=== PATIENT | female | born 1945 | race Caucasian/White ===

== ENCOUNTER 2023-12-27 09:05 | Emergency (ER) | payer MEDICARE ==
[2023-12-27 09:36] VITALS: BP 130/68; O2SAT 99
--- NOTE | 2023-12-27 09:46 | ED Physician Documentation ---
PD HPI BACK PAIN - Stated complaint Stated Complaint: GLF - Chief complaint Chief Complaint: Trauma Ch/Bk - History obtained from History obtained from: Patient - History of Present Illness Timing - onset: Yesterday Timing - duration: Days (1) Timing - details: Abrupt onset Pain level max: 5 Pain level now: 3 Location: Left, Other (ribs) Quality: Pain Associated symptoms: No: Fever, Weakness, Numbness, Incontinent of urine, Unable to urinate, Hematuria Improves with: Rest Worsened by: Movement - Additional information Additional information: Patient is a 78-year-old female who presents to the emergency department stating that [place] when she slipped on gravel, falling backwards and hitting her left posterior ribs on a piece of [place]. Complains of increasing pain to the left ribs today. Took Aleve which seemed to help. No shortness of breath. No fevers. No cough. No congestion. No abdominal pain, no neck or back pain. No numbness or tingling. Review of Systems Cardiac: denies: Palpitations Respiratory: denies: Dyspnea, Cough, Wheezing PD PAST MEDICAL HISTORY - Past Medical History Past Medical History: Yes Cardiovascular: Hypertension, High cholesterol Respiratory: None Neuro: None Endocrine/Autoimmune: None GI: None IP ARCHITECT: None : None HEENT: Chronic hearing loss Psych: None Musculoskeletal: Osteoarthritis Derm: None - Past Surgical History Past Surgical History: Yes Ortho: Hip replacement - Present Medications Home Medications: Ambulatory Orders Medication Instructions Recorded Confirmed Atenolol [Tenormin] 50 mg PO DAILY 12/27/23 12/27/23 Atorvastatin [Lipitor] 20 mg PO QPM 12/27/23 12/27/23 HYDROcod/ACETAM 5/325 [[place] 5/325] 1 - 2 ea PO Q6H PRN #10 tablet 12/27/23 Lisinopril [Zestril] 10 mg PO DAILY 12/27/23 12/27/23 - Allergies Allergies/Adverse Reactions: Allergies Allergy/AdvReac Type Severity Reaction Status Date / Time No Known Drug Allergies Allergy Verified 12/27/23 09:22 - Social History Does the pt smoke?: No Smoking Status: Never smoker Does the pt drink ETOH?: Yes Does the pt have substance abuse?: No - Immunizations Immunizations are current?: Yes - POLST Patient has POLST: No PD ED PE NORMAL - Vitals Vital signs reviewed: Yes - General General: Alert and oriented X 3, No acute distress, Well developed/nourished - HEENT HEENT: Atraumatic, PERRL, Moist mucous membranes - Neck Neck: Supple, no meningeal sign, No bony TTP - Cardiac Cardiac: RRR, Strong equal pulses - Respiratory Respiratory: No respiratory distress, Clear bilaterally - Abdomen Abdomen: Soft, Non tender, Non distended - Back Back: No spinal TTP - Derm Derm: Warm and dry - Extremities Extremities: Normal ROM s pain - Neuro Neuro: Alert and oriented X 3, field trainer 2-12 intact, No motor deficit, No sensory deficit, Normal speech Eye Opening: Spontaneous Motor: Obeys Commands Verbal: Oriented GCS Score: 15 - Free text exam Free text exam: TTP over the L lateral ribs approx 4-9. no crepitus or ecchymosis. Results - Vitals Vitals: Vital Signs - 24 hr 12/27/23 09:22 Temperature 36.3 C L Heart Rate 70 Respiratory 16 Rate Blood Pressure 130/68 O2 Saturation 99 Oxygen O2 Source Room air - Rads (name of study) CT chest Relevant Findings:: Final report received, See rad report PD Medical Decision Making - ED course Complexity details: reviewed results, re-evaluated patient, considered differential, d/w patient, d/w family ED course: Patient is status post a ground level fall yesterday. She has a left fifth rib fracture. Otherwise she has old rib fractures. Declines any pain medication here or for Home. Does not want to stay in the hospital. Was counseled regarding the pulmonary nodule and need for follow up. No other acute injuries. Patient will follow up with her doctor when she returns home. Patient counseled regarding signs and symptoms for which I believe an urgent re-evaluation would be necessary. Patient with good understanding of and agreement to plan and is comfortable going home at this time. This document was made in part using voice recognition software. While efforts are made to proofread this document, sound alike and grammatical errors may occur. Departure - Departure Disposition: 01 Home, Self Care Clinical Impression: Rib fracture Qualifiers: Encounter type: initial encounter Rib fracture type: single rib Fracture type: closed Laterality: left Qualified Code(s): S22.32XA - Fracture of one rib, left side, initial encounter for closed fracture Condition: Good Instructions: ED Fx Rib Follow-Up: AVINASH BECERRA MD [Primary Care Provider] - Within 1 week Prescriptions: HYDROcod/ACETAM 5/325 [[place] 5/325] 1 - 2 ea PO Q6H PRN #10 tablet PRN Reason: Pain Comments: As we discussed you have a left fifth rib fracture on your chest CT. You have old chronic appearing rib fractures as well. There is no pneumothorax or injury to your lung. You have a 5 mm pulmonary nodule that needs 6-month follow-up with your doctor. Please return if you worsen. Your prescription was sent to [facility] in [place]. I am prescribing a short course of narcotic pain medication for you. These are potentially dangerous and addictive medications that should be used carefully. These medications may constipate you. Take an nyrn-uxr-ytyepgm stool softener (docusate) twice daily with plenty of water while taking these medications. If you go 24 hours without a bowel movement, take buxp-uwa-umrbhik miralax, per package instructions. Do not drink or drive while taking these medications. If you received narcotic or sedating medications while in the emergency department, do not drive for 24 hours. Store this medication in a safe, secure place and out of reach of children. It is a violation of federal law to give or sell this medication to another person or to use in a manner other than prescribed. The ED will not refill narcotic prescriptions, including prescriptions lost or stolen. To dispose of unwanted medications: 1. [facility] at [address] in [place] has a medication drop box. They accept prescription medications (in pill form) Tuesday through Tuesday 9:00 a.m. to 5:00 p.m. 2. The [facility] [employer] accepts prescription medications (in pill form only) for disposal year round. Call for more information. 3. Contact the [facility] for the next [facility] sponsored prescription drug collection event. , [phone], or x [phone]; PROCEDURE: Chest WO INDICATIONS: L rib pain s/p fall TECHNIQUE: A CT scan of the chest was performed. Intravenous contrast media was not administered. Images were recorded and evaluated at appropriate window settings. Reformats: axial MIP of the chest, coronal and sagittal. For radiation dose reduction, the following was used: automated exposure control, adjustment of mA and/or kV according to patient size. COMPARISON: None. FINDINGS: Image quality: Diagnostic. Chest wall and lower neck: No thyroid nodule which requires sonographic follow up. No axillary or supraclavicular adenopathy by size. Lungs and pleura: No consolidation. No pleural effusions. No pneumothorax. 5 mm subpleural left pulmonary nodule, lateral aspect of left lower lobe, image 78/2. Mediastinum: Heart size is normal. No pericardial effusion. No large vessel abnormality. No mediastinal adenopathy by size criteria. Bones: Acute nondisplaced lateral left fifth rib fracture. There are subtle irregularities of multiple other left-sided ribs, including the anterior third and fourth and fifth ribs as well as the lateral sixth rib and seventh rib and eighth rib which are consistent with fractures that are likely chronic. Upper Abdomen: Unremarkable. IMPRESSION: 1. Acute nondisplaced lateral left fifth rib fracture. 2. Subtle irregularities of multiple other left-sided ribs likely represent chronic fractures. 3. No pneumothorax or focal pulmonary infiltrate. 4. 5 mm pulmonary nodule, left lung. Recommend 6 month follow-up for the 5 mm pulmonary nodule. Forms: PCP List Discharge Date/Time: 12/27/23 11:28
--- NOTE | 2023-12-27 10:54 | CT Report ---
PROCEDURE: Chest WO INDICATIONS: L rib pain s/p fall TECHNIQUE: A CT scan of the chest was performed. Intravenous contrast media was not administered. Images were re corded and evaluated at appropriate window settings. Reformats: axial MIP of the chest, coronal and s agittal. For radiation dose reduction, the following was used: automated exposure control, adjustment of mA and/or kV according to patient size. COMPARISON: None. FINDINGS: Image quality: Diagnostic. Chest wall and lower neck: No thyroid nodule which requires sonographic follow up. No axillary or sup raclavicular adenopathy by size. Lungs and pleura: No consolidation. No pleural effusions. No pneumothorax. 5 mm subpleural left pulm onary nodule, lateral aspect of left lower lobe, image 78/2. Mediastinum: Heart size is normal. No pericardial effusion. No large vessel abnormality. No mediastin al adenopathy by size criteria. Bones: Acute nondisplaced lateral left fifth rib fracture. There are subtle irregularities of multipl e other left-sided ribs, including the anterior third and fourth and fifth ribs as well as the latera l sixth rib and seventh rib and eighth rib which are consistent with fractures that are likely chroni c. Upper Abdomen: Unremarkable. IMPRESSION: 1. Acute nondisplaced lateral left fifth rib fracture. 2. Subtle irregularities of multiple other left-sided ribs likely represent chronic fractures. 3. No pneumothorax or focal pulmonary infiltrate. 4. 5 mm pulmonary nodule, left lung. Recommend 6 month follow-up for the 5 mm pulmonary nodule. Reviewed by: Jose E Quinn MD on 12/27/2023 10:53 AM PDT Approved by: Jose E Quinn MD on 12/27/2023 10:53 AM PDT Station ID: [id number]
== END 2023-12-27 11:28 | disposition home or self-care (01) ==
LOC: ED 09:05
DX: S22.32XA Fracture of one rib, left side, initial encounter for closed fracture (principal); W01.0XXA Fall on same level from slipping, tripping and stumbling without subsequent striking against object, initial encounter; Y92.832 Beach as the place of occurrence of the external cause; I10 Essential (primary) hypertension; E78.00 Pure hypercholesterolemia, unspecified
CPT/HCPCS: 99283; 99284